=== PATIENT | male | born 1955 | race Caucasian/White ===

== ENCOUNTER → 2018-07-07 | Outpatient (CLI) | payer BC | LOC: M ADAMS 11:23 | DX: S40.012A Contusion of left shoulder, initial encounter (principal) | CPT/HCPCS: 73030 ==

== ENCOUNTER 2018-10-16 07:38 | Day surgery (SDC) | payer BC ==
[~2018-10-16] VITALS: Ht 172.7 cm; Wt 80.7 kg
[~2018-10-16 07:38] MED LIST: ASPI81TA85 PO; OMEP40CA2 PO
[2018-10-16] MEDS ORDERED: NS 1,000 ML IV SCH (08:00)
[2018-10-16] MEDS ORDERED: PROPOFOL 200 MG/20 ML VIAL As Ordered ONE (09:07)
[2018-10-16] MEDS ORDERED: LIDOCAINE 2% INJ 100 MG/5 ML SDV (FOR ANES.) As Ordered ONE (09:07)
--- NOTE | 2018-10-16 09:07 | ROOR ---
Patient Name: Amirah Ramey Procedure Date: 10/16/2018 8:43 AM Date of : 1955 Age: 63 Room: [facility] Gender: Male Note Status: Finalized Procedure: Colonoscopy Indications: High risk colon cancer surveillance: Personal history of colonic polyps, Last colonoscopy: July 2015 Providers: Jerson HERNÁNDEZ MD Referring MD: EVER GILES MD Requesting Provider: Medicines: Monitored Anesthesia Care Complications: No immediate complications. Procedure: Pre-Anesthesia Assessment: - The heart rate, respiratory rate, oxygen saturations, blood pressure, adequacy of pulmonary ventilation, and response to care were monitored throughout the procedure. The Colonoscope was introduced through the anus and advanced to the cecum, identified by appendiceal orifice and ileocecal valve. The colonoscopy was performed without difficulty. The patient tolerated the procedure well. The quality of the bowel preparation was good. Findings: The perianal and digital rectal examinations were normal. Retroflexion in the right colon was performed. The entire examined colon appeared normal on direct and retroflexion views. Small Internal Hemorrhoids. Impression: - The entire colon is normal on direct and retroflexion views. - Small Internal Hemorrhoids. - No specimens collected. Recommendation: - Repeat colonoscopy in 5 years for surveillance. Jerson eHrnández MD Jerson HERNÁNDEZ MD 10/16/2018 9:07:08 AM This report has been signed electronically. Number of Addenda: 0 Note Initiated On: 10/16/2018 8:43 AM Estimated Blood Loss: Estimated blood loss: none.
[2018-10-16 09:25] VITALS: BP 173/100
== END 2018-10-16 09:31 | disposition home or self-care (01) ==
LOC: M OPP 07:38
PROVIDERS: ATTEND Internal Medicine Gastroenterology
DX: K64.8 Other hemorrhoids (principal); Z86.010 Personal history of colon polyps

== ENCOUNTER 2020-07-08 10:49 | Observation (INO) | payer BC, MEDICARE ==
[~2020-07-08] VITALS: Ht 175.3 cm; Wt 75.2 kg
[~2020-07-08 10:49] MED LIST changes: -ASPI81TA85 PO; +ASPI81TA86 PO; -OMEP40CA2 PO; +OMEP40CA97 PO
--- NOTE | 2020-07-08 12:06 | REPVR ---
PROCEDURE INFORMATION: Exam: CT Head Without Contrast Exam date and time: 07/08/2020 11:52 AM Age: 65 years old Clinical indication: Pain; Other: Trauma TECHNIQUE: Imaging protocol: Computed tomography of the head without contrast. Radiation optimization: All CT scans at this facility use at least one of these dose optimization techniques: automated exposure control; mA and/or kV adjustment per patient size (includes targeted exams where dose is matched to clinical indication); or iterative reconstruction. COMPARISON: No relevant prior studies available. FINDINGS: Brain: There is no acute intracranial hemorrhage or mass effect. Mild diffuse volume loss is within the range of normal for patient age. There are small vessel ischemic changes within the periventricular and subcortical white matter, but the normal juarez/white matter delineation is maintained. Ventricles: Normal. No ventriculomegaly. Bones/joints: Unremarkable. No acute fracture. Sinuses: There is moderate ethmoid mucosal thickening. There is polypoid mucosal thickening along the floors of the maxillary sinuses, left greater than right. Mastoid air cells: Visualized mastoid air cells are well aerated. Soft tissues: Unremarkable. IMPRESSION: No acute hemorrhage or calvarial fracture. Electronically signed by: Flaquita Liu On 07/08/2020 12:06:12 PM
--- NOTE | 2020-07-08 12:15 | REPVR ---
PROCEDURE INFORMATION: Exam: CT Cervical Spine Without Contrast Exam date and time: 07/08/2020 11:52 AM Age: 65 years old Clinical indication: Pain; Other: Tra; Additional info: Trauma TECHNIQUE: Imaging protocol: Computed tomography images of the cervical spine without contrast. Radiation optimization: All CT scans at this facility use at least one of these dose optimization techniques: automated exposure control; mA and/or kV adjustment per patient size (includes targeted exams where dose is matched to clinical indication); or iterative reconstruction. COMPARISON: No relevant prior studies available. FINDINGS: Vertebrae: No acute fracture. Normal alignment. Discs/Spinal canal/Neural foramina: There is multilevel severe intervertebral disc space loss at C3/4, C5/6 and C6/7. There is partial osseous fusion of the C5 and C6 bodies and right posterior elements. There is multilevel facet hypertrophy. There is severe narrowing at the left C1/C2 lateral articulation. At C4/5, diffuse disc osteophyte complex and moderate facet hypertrophy contribute to severe bilateral neural foraminal narrowing. At C5/6, diffuse disc osteophyte complex and moderate facet hypertrophy contribute to mild right and moderate to severe left neural foraminal narrowing and moderate canal stenosis. At C6/7, diffuse disc osteophyte complex and moderate facet hypertrophy contribute to moderate to severe right and severe left neural foraminal narrowing. Soft tissues: Unremarkable. Lungs: Lung apices are normal. IMPRESSION: No acute fracture. Chronic changes. Electronically signed by: Flaquita Liu On 07/08/2020 12:15:15 PM
[2020-07-08] MEDS ORDERED: ACET-683 PO (13:45)
[2020-07-08 14:03] LABS: BASO # 0.1 10^3/uL (0.0-0.2); BASO % 1.1 % (0.0-1.0); EOS # 0.2 10^3/uL (0.0-0.5); HEMATOCRIT 44.9 % (42.0-52.0); LYMPH # 1.3 10^3/uL (1.5-5.0); LYMPH % 23.2 % (24.0-44.0); MEAN CORPUSCULAR HEMOGLOBIN 30.9 pg (27.0-33.0); MEAN CORPUSCULAR HGB CONC 33.4 g/dl (32.0-36.5); MEAN CORPUSCULAR VOLUME 92.6 fl (80.0-96.0); MONO # 0.5 10^3/uL (0.0-0.8); MONO % 8.7 % (0.0-5.0); NEUTROPHILS # 3.4 10^3/uL (1.5-8.5); NEUTROPHILS % 63.6 % (36.0-66.0); PLATELET COUNT, AUTOMATED 138 10^3/uL (150-450); RED BLOOD COUNT 4.85 10^6/uL (4.30-6.10); WHITE BLOOD COUNT 5.4 10^3/uL (4.0-10.0)
[2020-07-08 14:16] LABS: INR 1.06; PARTIAL THROMBOPLASTIN TIME 27.2 SECONDS (25.0-38.4)
[2020-07-08 14:26] LABS: ALBUMIN 3.7 GM/DL (3.2-5.2); ALT/SGPT 52 U/L (12-78); BILIRUBIN,DIRECT 0.4 MG/DL (0.0-0.2); BILIRUBIN,TOTAL 1.1 MG/DL (0.2-1.0); BLOOD UREA NITROGEN 14 MG/DL (7-18); CALCIUM LEVEL 8.8 MG/DL (8.8-10.2); CARBON DIOXIDE LEVEL 27 MEQ/L (21-32); CHLORIDE LEVEL 107 MEQ/L (98-107); CK-MB VALUE MASS 2.3 NG/ML (<3.6); CPK CREATINE PHOSPHOKINASE 123 U/L (39-308); CREATININE FOR GFR 0.67 MG/DL (0.70-1.30); GLOMERULAR FILTRATION RATE > 60.0 (>49); GLUCOSE, FASTING 87 MG/DL (70-100); MB/CK RELATIVE INDEX 1.87 (< OR =4); SODIUM LEVEL 140 MEQ/L (136-145); TROPONIN I < 0.02 NG/ML (< 0.10)
[2020-07-08] MEDS ORDERED: ASPIRIN 81 MG CHEW TABLET PO ONE (15:45)
[2020-07-08] MEDS ORDERED: NS 1,000 ML IV SCH (16:00)
--- NOTE | 2020-07-08 16:39 | HPEPDOC ---
General Date of Admission 07/08/2020 Date of Service: Jul 08, 2020 Attending Physician: VIANCA FORDE DO Chief Complaint The patient is a 65-year-old male admitted with a reason for visit of Memory Loss Yesterday. Source: Patient Exam Limitations: No limitations Timing/Duration: Other (Started yesterday evening, but resolved today and resolved prior to arrival) Severity: Mild History of Present Illness Mr. Ramey is a 65 year old male here with memory loss. Prior to events, he was feeling healthy. Yesterday, he was working outside, about 4 to 5 hours and spoke with his children. Then that evening, his asked him what he did for the day. He could not remember, and it made him anxious and lightheaded. Today, he went to the ED. ABCD2 score was 3, but currently no symptoms. He remembers everything that happened yesterday now. This is a first time it has ever happened. Denied any cardiac history or neurologic history. Denies any weakness, dysphagia, or any palpitations. He t ells me that he is healthy and active. The only time he felt off was when he could not remember what happened during the day and became anxious and lightheaded. Home Medications Scheduled Omeprazole (Omeprazole) 40 Mg Cap, 40 MG PO DAILY, (Reported) Scheduled PRN Acetaminophen (Acetaminophen) 500 Mg Tablet, 1,000 MG PO Q6H PRN for PAIN, (Reported) Allergies Coded Allergies: No Known Allergies (Unverified , 10/02/18) Past Medical History Medical History GERD Surgical History Left shoulder surgery, Bilateral hip replacement Family History Significant Family History: COPD (Father), Other Mother is currently alive and has dementia. Father has Social History * Smoker: former Smoker (Quit 30 years ago, smoked for 10 years, less than 1 pack/day), cigarettes Alcohol: other (Drinks about 2 to 3 times a week, Drinks about 6 bottles a beer at each session) Drugs: other (In the past, used marijuna, but stopped 30 years ago, no other recreational drug use) A-FIB/CHADSVASC A-FIB History Current/History of A-Fib/PAF?: No Review of Systems Constitutional: Denies: Chills, Fever, Weakness, Fatigue Eyes: Denies: Vision change ENT: Denies: Head Aches, Sore Throat Skin: Denies: Rash, Jaundice Pulmonary: Denies: Dyspnea, Cough, Pleuritic Chest Pain Cardiovascular: Denies: Chest Pain, Palpitations Gastrointestinal: Denies: Nausea, Vomiting, Abdominal Pain, Diarrhea, Constipation Genitourinary: Denies: Dysuria Hematologic: Denies: Bruising Neurological: Denies: Weakness, Numbness Psych: Reports: Anxiety Physical Examination General Exam: Positive: Alert, Cooperative, No Acute Distress Eye Exam: Positive: EOMI, Sclera icteric ENT Exam: Positive: Mucous membr. moist/pink, Tongue Midline Neck Exam: Positive: Supple Chest Exam: Positive: Clear to auscultation, Normal air movement; Negative: Rales, Rhonchi, Wheezing Heart Exam: Positive: Bradycardic, Regular Rhythm Telemetry: Positive: Sinus, Bradycardia Abdomen Exam: Positive: Normal bowel sounds, Soft; Negative: Tenderness Extremity Exam: Negative: Edema, Tenderness Skin Exam: Positive: Nl turgor and temperature, Other skin issue (Very sellers) Neuro Exam: Positive: Normal Speech, Strength at 5/5 X4 ext, Normal Tone, Cranial Nerves 3-12 NL Psych Exam: Negative: Anxiety Vital Signs Vital Signs Date Time Temp Pulse Resp B/P (MAP) Pulse Ox O2 Delivery O2 Flow Rate FiO2 07/08/20 15:44 97.8 59 17 129/83 (98) 97 Room Air Laboratory Data Labs 24H Laboratory Tests 2 07/08/20 13:32: Immature Granulocyte % (Auto) 0.4, Neutrophils (%) (Auto) 63.6, Lymphocytes (%) (Auto) 23.2L, Monocytes (%) (Auto) 8.7H, Eosinophils (%) (Auto) 3.0, Basophils (%) (Auto) 1.1H, Neutrophils # (Auto) 3.4, Lymphocytes # (Auto) 1.3L, Monocytes # (Auto) 0.5, Eosinophils # (Auto) 0.2, Basophils # (Auto) 0.1, Nucleated Red Blood Cells % (auto) 0.0, Prothrombin Time 14.0, Prothromb Time International Ratio 1.06, Activated Partial Thromboplast Time 27.2, Anion Gap 6L, Glomerular Filtration Rate > 60.0, Calcium Level 8.8, Total Bilirubin 1.1H, Direct Bilirubin 0.4H, Aspartate Amino Transf (AST/SGOT) 38H, Alanine Aminotransferase (ALT/SGPT) 52, Alkaline Phosphatase 48, Total Creatine Kinase 123, Creatine Kinase MB 2.3, Creatine Kinase MB Relative Index 1.87, Troponin I < 0.02, Total Protein 7.0, Albumin 3.7, Albumin/Globulin Ratio 1.1 CBC/BMP Laboratory Tests 07/08/20 13:32 Assessment/Plan Mr. Ramey is a 65 year old male who presents to the ED for short term memory loss. Last evening, he could not remember what he did that day, but resolved today. CT head was negative for ICH or fracture. Patient will be observed overnight on telemetry for signs of atrial fibrillation. TIA work up will be completed including CT angio neck and echocardiogram with bubble study Problems (1) Transient memory loss Status: Acute Plan / VTE VTE Prophylaxis Ordered?: Yes Plan Plan 1. TIA - Patient had transiently loss memory. Today, he remembers everything that happened yesterday. No neurologic symptoms today (no weakness, no facial droop, CN 3-12 grossly intact, memory intact). Will give patient full dose aspirin today and start aspirin 81mg tomorrow. Will start patient on high dose statin. Will order CT angio of the neck and echocardiogram with bubble study. Will monitor patient on tele overnight. 2. Sinus bradycardia - Heart rate persistently in the 50s, but denies symptoms of dizziness or lightheadedness. Heart rate is regular, no signs of atrial fibrillation. No signs of AV conduction delay or bundle branch block on EKG. Not on medications that would slow heart rate. We will monitor on tele 3. GERD - Will continue PPI in patient 4. DVT ppx - Will start Lovenox for DVT ppx VIANCA FORDE DO Jul 08, 2020 16:39
[2020-07-08] MEDS ORDERED: ISOVUE-370 76% 100ML VIAL As Ordered ONE (16:50)
--- NOTE | 2020-07-08 17:14 | REPVR ---
PROCEDURE INFORMATION: Exam: CT Angiography Neck With Contrast Exam date and time: 07/08/2020 4:50 PM Age: 65 years old Clinical indication: Pain; Headache; Prior surgery; Additional info: TIA TECHNIQUE: Imaging protocol: Computed tomography angiography of the neck with intravenous contrast. 3D rendering (Not supervised by radiologist): MIP and/or 3D reconstructed images were created by the technologist. Radiation optimization: All CT scans at this facility use at least one of these dose optimization techniques: automated exposure control; mA and/or kV adjustment per patient size (includes targeted exams where dose is matched to clinical indication); or iterative reconstruction. Contrast material: ISOVUE 370; Contrast volume: 75 ml; Contrast route: INTRAVENOUS (IV); COMPARISON: CT Spine,cervical w/o contrast 07/08/2020 11:45 AM FINDINGS: Right common carotid artery: No stenosis. No dissection or occlusion. Right internal carotid artery: No stenosis of the extracranial segment. No dissection or occlusion. Right external carotid artery: No occlusion or stenosis of the origin. Right vertebral artery: No stenosis. No dissection or occlusion. Left common carotid artery: No stenosis. No dissection or occlusion. Left internal carotid artery: No stenosis of the extracranial segment. No dissection or occlusion. Left external carotid artery: No occlusion or stenosis of the origin. Left vertebral artery: No stenosis. No dissection or occlusion. Bones/joints: No acute fracture. Soft tissues: Normal. No significant soft tissue swelling. IMPRESSION: No stenosis or occlusion. REFERENCES: NASCET CRITERIA. The degree of internal carotid artery stenosis is based on NASCET criteria. Normal is no stenosis. Mild is less than 50% stenosis. Moderate is 50-69% stenosis. Severe is 70% to 99% stenosis. Total occlusion is no detectable patent lumen. Electronically signed by: Michael Grubbs On 07/08/2020 17:14:33 PM
[2020-07-08 17:45] VITALS: BP 166/78
[2020-07-08] MEDS ORDERED: ATORVASTATIN 20 MG TAB PO SCH (21:00)
[2020-07-08 22:00] VITALS: BP 128/69
[2020-07-09 03:43] VITALS: BP 114/72
[2020-07-09 06:00] VITALS: BP 121/73
[2020-07-09] MEDS ORDERED: ASPIRIN 81 MG CHEW TABLET PO SCH (09:00)
[2020-07-09] MEDS ORDERED: ENOXAPARIN 40MG/0.4ML SYRINGE (J1650 PER 10MG) SC SCH (09:00)
[2020-07-09] MEDS ORDERED: OMEPRAZOLE 20 MG CAP PO SCH (09:00)
[2020-07-09] MEDS ORDERED: ASPI81CH8 PO (13:28)
[2020-07-09] MEDS ORDERED: ATOR1TAB21 PO (13:28)
--- NOTE | 2020-07-09 21:33 | DS.PDOC ---
Discharge Summary General Date of Admission Jul 08, 2020 at 10:50 Date of Discharge Jul 09, 2020 Attending Physician: VIANCA FORDE DO Discharge Summary PROCEDURES PERFORMED DURING STAY: [None]. ADMITTING DIAGNOSES: 1. TIA 2. Sinus bradycardia 3. GERD DISCHARGE DIAGNOSES: 1. TIA 2. Sinus bradycardia 3. GERD COMPLICATIONS/CHIEF COMPLAINT: TIA. HISTORY OF PRESENT ILLNESS: Mr. Ramey is a 65 year old male who presents to the ED with memory loss. Prior to events, he was feeling healthy. The day before admission, he was working outside, about 4 to 5 hours and spoke with his children. Then that evening, his asked him what he did for the day. He could not remember, and it made him anxious and lightheaded. Today, he went to the ED. Symptoms by that time had already resolved. He remembers everything that happened yesterday now. This is a first time it has ever happened. Denied any cardiac history or neurologic history. Denies any weakness, dysphagia, or any palpitations. He tells me that he is healthy and active. The only time he felt off was when he could not remember what happened during the day and became anxious and lightheaded. CT head was negative for ICH HOSPITAL COURSE: He was monitored overnight on tele. There was no suggestion of atrial fibrillation, but he did have sinus bradycardia. CT angio of the neck did not demonstrate any plaque. Echocardiogram with bubble study was done in the afternoon. He was interested in going home today. Since it would take a few days for the results of the echocardiogram, I discussed with him about going home before the results returned. He was okay with this. He felt well this morning without complaints. He did not have memory loss while he was here. He was discharged home with instructions to continue aspirin and statin. DISCHARGE MEDICATIONS: Please see below. ALLERGIES: Please see below. PHYSICAL EXAMINATION ON DISCHARGE: VITAL SIGNS: Please see below. GENERAL: Comfortable, in no apparent distress HEENT: Head normocephalic, atraumatic, EOMI, Sclera clear NECK: Supple CARDIOVASCULAR EXAMINATION: Bradycardic but regular RESPIRATORY EXAMINATION: Lungs clear to auscultation bilaterally ABDOMINAL EXAMINATION: Soft, non-tender, normal bowel sounds EXTREMITIES: No pitting edema bilaterally NEUROLOGICAL EXAMINATION: CN 3-12 grossly intact PSYCHIATRIC EXAMINATION: Normal mood and affect LABORATORY DATA: Please see below. PROGNOSIS: Stable ACTIVITY: [As tolerated]. DIET: As tolerated DISCHARGE PLAN: Home DISPOSITION: 01 Home, Self-Care. DISCHARGE INSTRUCTIONS: 1. Follow up with your PCP within a week ITEMS TO FOLLOWUP ON ON OUTPATIENT: 1. Follow up on Echocardiogram with bubble study DISCHARGE CONDITION: [Stable]. Total time spent on discharge planning, discharge summary, and medication reconciliation 40 mins Vital Signs/I&Os Vital Signs Date Time Temp Pulse Resp B/P (MAP) Pulse Ox O2 Delivery O2 Flow Rate FiO2 07/09/20 06:00 98.4 51 16 121/73 (89) 97 Room Air I&O- Last 24 Hours up to 6 AM0 07/09/20 06:00 Intake Total 1365 ml Output Total 300 ml Balance 1065 ml Discharge Medications Scheduled Aspirin (Children's Aspirin) 81 Mg Tab.chew, 81 MG PO DAILY Atorvastatin Calcium (Atorvastatin Calcium) 20 Mg Tablet, 40 MG PO QHS Omeprazole (Omeprazole) 40 Mg Cap, 40 MG PO DAILY, (Reported) Scheduled PRN Acetaminophen (Acetaminophen) 500 Mg Tablet, 1,000 MG PO Q6H PRN for PAIN, (Reported) Allergies Coded Allergies: No Known Allergies (Unverified , 10/02/18) VIANCA FORDE DO Jul 09, 2020 21:33
--- NOTE | 2020-07-14 08:20 | ECHO ---
DATE OF PROCEDURE: 07/09/2020 Age: 65 REFERRING PROVIDER: Dr. Sandip Vincent PATIENT LOCATION: Room 4223 REASON FOR STUDY: Transient ischemic attack (TIA). MEASUREMENTS: IVS 1.2 cm LV 4.1 cm LVPW 1.0 cm LA 3.8 cm Aorta 3.4 cm IVC 1.7 cm DOPPLER MEASUREMENT Peak velocity across the aortic valve 1.2 mm/s Peak velocity across the LVOT 0.8 mm/s Mitral E 0.75 Mitral A 0.72 with a ratio of 1.0 Maximum tricuspid valve velocity 1.8 mm/s Trace mitral regurgitation detected 2D COMMENTS: 1. Normal left ventricular size, wall thickness, and normal global left ventricular systolic function. The estimated left ventricular systolic ejection fraction is 60% to 65%. 2. Normal left atrium. Normal right atrium and right ventricle. 3. The atrial septum appears to be normal without evidence for defect or shunt. 4. Normal aortic root. 5. No pericardial effusion seen. 6. Minimally calcified aortic valve with normal leaflet excursion. Normal mitral valve, tricuspid valve, and pulmonic valve. The proximal pulmonary artery branches were not well visualized. 7. The inferior vena cava was normal in size, central venous pressure is most likely normal. 8. Doppler detects trace mitral regurgitation, trace tricuspid regurgitation. The calculated pulmonary artery systolic pressure was normal. Assessment of the left ventricular diastolic function appears to be normal. BUBBLE STUDY: Done with agitated normal saline and there was no passage of bubbles from the right heart chambers to the left heart chambers. IMPRESSION: 1. Normal global left ventricular systolic function. Assessment of the left ventricular diastolic function appeared to be normal, but was not quite conclusive. 2. Aortic valve sclerosis with trace aortic regurgitation, but no aortic stenosis. 3. Trace mitral regurgitation. 4. Trace tricuspid regurgitation with a normal calculated pulmonary artery systolic pressure. 5. Negative bubble study for intracardiac shunt. [facility]
--- NOTE | 2020-07-14 12:57 | ECGEPIP ---
[facility] - ED Test Date: 2020-07-08 Pat Name: DAVID ALEGRIA Department: Room: - Gender: Male Legal Research Analyst: kumar : 1955 Requested By: LINN Pruitt Order Number: [id number] Reading MD: Marlen Tejada Measurements Intervals [place] Rate: 50 P: -58 OK: 153 QRS: 8 QRSD: 90 T: 19 QT: 457 QTc: 418 Interpretive Statements ECTOPIC BRADYCARDIA PROBABLE INFERIOR MYOCARDIAL INFARCTION, OF INDETERMINATE AGE ABNORMAL ECG SEE SCANNED DOWNTIME REPORT
== END 2020-07-09 14:06 | disposition home or self-care (01) ==
LOC: M ED 10:49 → M ED INP 10:50 → M MSPAV 18:39
PROVIDERS: ADMIT Internal Medicine; ATTEND Internal Medicine
DX: G45.9 Transient cerebral ischemic attack, unspecified (principal); R00.1 Bradycardia, unspecified; K21.9 Gastro-esophageal reflux disease without esophagitis; G45.4 Transient global amnesia; R29.700 NIHSS score 0; Z79.899 Other long term (current) drug therapy; Z79.82 Long term (current) use of aspirin; Z87.891 Personal history of nicotine dependence
CPT/HCPCS: 70450; 70498; 71045; 72125; 80048; 80076; 82550; 82553; 84484; 85025; 85610; 85730; 86850; 86900; 86901; 93005; 93041; 93306; 94760; 96360; 96361; 96372; 99285; G0378; J1650; Q9967

== ENCOUNTER → 2021-02-11 | Outpatient (CLI) | payer MEDICARE ==
[~2021-02-11] MED LIST changes: +ACET-683 PO; +ASPI81CH8 PO; +ATOR1TAB21 PO
--- NOTE | 2021-02-11 14:24 | REP ---
INDICATION: PAIN. COMPARISON: None TECHNIQUE: Four views FINDINGS: There is an incomplete slightly oblique near hairline distal ulnar fracture. Degenerative changes seen involving the distal radioulnar joint. Chronic cystic degenerative changes seen involving the distal ulna including subchondral cyst formation. IMPRESSION: Distal ulnar fracture and other changes as described above. <Electronically signed by Arya Paul > 02/11/21 [id number]
== END ==
LOC: M WUC 13:51
PROVIDERS: ATTEND Physician Assistant
DX: S52.201A Unspecified fracture of shaft of right ulna, initial encounter for closed fracture (principal); X58.XXXA Exposure to other specified factors, initial encounter; Y92.89 Other specified places as the place of occurrence of the external cause; Y93.89 Activity, other specified; Y99.8 Other external cause status

== ENCOUNTER → 2022-10-06 | Outpatient (CLI) | payer MEDICARE ==
[~2022-10-06] MED LIST changes: +OMEP40CA4 PO; -OMEP40CA97 PO
== END ==
LOC: M RAD 13:33
PROVIDERS: ATTEND Internal Medicine
DX: E04.1 Nontoxic single thyroid nodule (principal)

== ENCOUNTER 2024-01-31 06:50 | Day surgery (SDC) | payer MEDICARE ==
[~2024-01-31] VITALS: Ht 175.3 cm; Wt 77.1 kg
[2024-01-31] MEDS ORDERED: propofoL 200 MG/20 ML VIAL As Ordered ONE (07:01)
[2024-01-31] MEDS ORDERED: LIDOCAINE 2% 100MG/5ML SDV (FOR ANES.) As Ordered ONE (07:06)
[2024-01-31] MEDS: NS 1,000 ML IV ONE (07:19)
[2024-01-31 07:51] VITALS: TEMP 96.7
[2024-01-31 08:20] VITALS: BP 156/80; O2SAT 97
== END 2024-01-31 08:38 | disposition home or self-care (01) ==
LOC: M OPP 06:50
PROVIDERS: ATTEND Internal Medicine Gastroenterology
DX: Z86.010 Personal history of colon polyps (principal); D12.4 Benign neoplasm of descending colon; K64.8 Other hemorrhoids; K57.30 Diverticulosis of large intestine without perforation or abscess without bleeding; Z79.02 Long term (current) use of antithrombotics/antiplatelets; Z79.1 Long term (current) use of non-steroidal anti-inflammatories (NSAID); Z79.82 Long term (current) use of aspirin; Z79.899 Other long term (current) drug therapy